=== PATIENT | female | born 1975 | race African-American/Black ===

== ENCOUNTER 2016-08-26 08:21 | Inpatient (IN) | payer OTHER ==
[2016-08-26 10:36] VITALS: BMI 23.8
--- NOTE | 2016-08-26 12:09 | HP ---
CIWA Score - CIWA Score Nausea/Vomitin Muscle Tremors: 3 Anxiety: 3 Agitation: 2 Paroxysmal Sweats: 1-Minimal Palms Moist Orientation: 0-Oriented Tacttile Disturbances: 1-Very Mild Itch/Numbness Auditory Disturbances: 1-Very Mild Visual Disturbances: 1-Very Mild Sensitivity Headache: 2-Mild CIWA-Ar Total Score: 17 Admission ROS BHS - HPI Chief Complaint: i need help help to stop drinking alcohol and cocaine Allergies/Adverse Reactions: Allergies Allergy/AdvReac Type Severity Reaction Status Date / Time acetaminophen Allergy Severe Difficulty Verified 08/26/16 10:35 [From Darvocet-N] Breathing ibuprofen Allergy Severe Difficulty Verified 08/26/16 10:35 Breathing latex Allergy Severe Swelling Verified 08/26/16 10:35 olanzapine [From Zyprexa] Allergy Severe Hives Verified 08/26/16 10:35 orange Allergy Severe Hives Verified 08/26/16 10:35 Penicillins Allergy Severe Swelling Verified 08/26/16 10:35 promethazine HCl Allergy Severe Swelling Verified 08/26/16 10:35 [From Phenergan] propoxyphene napsylate Allergy Severe Difficulty Verified 08/26/16 10:35 [From Darvocet-N] Breathing shrimp Allergy Severe Swelling Verified 08/26/16 10:35 venlafaxine HCl Allergy Severe Hives Verified 08/26/16 10:35 [From Effexor] History of Present Illness: this 41 years old female patient with alcohol and cocaine dependence,withdrawal symptom,never been in detox before seizure last 03/07 non compliance injury to right ankle seen at [facility] /.07/07 had right ankle immmobilization,requested cane walking depression Exam Limitations: No Limitations - Ebola screening Have you traveled outside of the country in the last 21 days: No Have you had contact with anyone from an Ebola affected area: No Have you been sick,other than usual withdrawal symptoms: No - Review of Systems Constitutional: Diaphoresis, Loss of Appetite, Malaise, Night Sweats, Changes in sleep, Weakness, Unintentional Wgt. Loss EENT: reports: Nose Congestion Respiratory: reports: No Symptoms reported Cardiac: reports: No Symptoms Reported GI: reports: Nausea, Vomiting, Abdominal cramping : reports: No Symptoms Reported Musculoskeletal: reports: Back Pain, Muscle Pain (old injury to right ankle wearing ankle immobilization) Integumentary: reports: Dryness Neuro: reports: Headache, Tremors Endocrine: reports: No Symptoms Reported Hematology: reports: No Symptoms Reported Psychiatric: reports: Judgement Intact, Mood/Affect Appropiate, Orientated x3, Depressed Patient History - Patient Medical History Hx Asthma: Yes (Pt is on MDI) Hx Chronic Obstructive Pulmonary Disease (COPD): No Hx Cancer: No Hx Cardiac Disorders: No Hx Congestive Heart Failure: No Hx Hypertension: No Hx Pacemaker: No HX Cerebrovascular Accident: No Hx Seizures: Yes (pt has a hx of and is not currently on meds. last seizure was 1 yr ago) Hx Dementia: No Hx Diabetes: No Hx Gastrointestinal Disorders: No Hx Liver Disease: No Hx Genitourinary Disorders: No Hx Sexually Transmitted Disorders: No Hx Renal Disease (ESRD): No Hx Thyroid Disease: No Hx Human Immunodeficiency Virus (HIV): No (last 08/06 negative) Hx Hepatitis C: No Hx Depression: Yes Hx Suicide Attempt: Yes (2013 overdose) Hx Bipolar Disorder: No Hx Schizophrenia: No Other Medical History: no suicidal,no homocodal - Patient Surgical History Past Surgical History: Yes Hx Orthopedic Surgery: Yes (Sx for fx mandible in 2005) Anesthesia Reaction: No - PPD History Previous Implant?: Yes Documented Results: Negative w/o proof Implanted On Prior R Admission?: No PPD to be Administered?: Yes - Reproductive History Patient is a Female of Child Bearing Age (11 -55 yrs old): Yes Last Menstrual Period: 07/31/16 Patient : No - Smoking Cessation Smoking history: Current every day smoker Have you smoked in the past 12 months: Yes Aproximately how many cigarettes per day: 30 Hx Chewing Tobacco Use: No Initiated information on smoking cessation: Yes 'Breaking Loose' booklet given: 08/26/16 - Substance & Tx. History Hx Alcohol Use: Yes Hx Substance Use: Yes Substance Use Type: Alcohol, Cocaine Hx Substance Use Treatment: No - Substances Abused Alcohol Route: Oral Frequency: Daily Amount used: 3 PINTS JOSUÉ Age of first use: 15 Date of Last Use: 08/25/16 Cocaine Route: Smoking Frequency: 1-3 times last 30 days Amount used: 2 HITS Age of first use: 41 Date of Last Use: 08/25/16 Family Disease History - Family Disease History Family Disease History: CA: Grandparent (alcohol, ca of throat), Other: Father (alcohol), Mother (alcohol,dsa) Admission Physical Exam [facility] - Vital Signs Vital Signs: Vital Signs - 24 hr 08/26/16 10:34 Temperature 96 F L Pulse Rate 74 Respiratory 20 Rate Blood Pressure 133/68 - Physical General Appearance: Yes: Moderate Distress, Tremorous, Irritable, Sweating, Anxious HEENTM: Yes: Normal ENT Inspection, BOZENA, Pharynx Normal Respiratory: Yes: Lungs Clear, Normal Breath Sounds, No Respiratory Distress Neck: Yes: Within Normal Limits, Supple, Trachea in good position Breast: Yes: Breast Exam Deferred Cardiology: Yes: Within Normal Limits, Regular Rhythm, Regular Rate, S1, S2 Abdominal: Yes: Within Normal Limits, Normal Bowel Sounds, Non Tender, Flat, Soft Genitourinary: Yes: Within Normal Limits Back: Yes: Muscle Spasm Musculoskeletal: Yes: full range of Motion, Back pain, Muscle Pain Extremities: Yes: Normal Range of Motion, Tremors Neurological: Yes: community life director II-XII NML intact, Fully Oriented, Alert, Motor Strength 5/5 Integumentary: Yes: Dry Lymphatic: Yes: Within Normal Limits - Diagnostic (1) Alcohol dependence with uncomplicated withdrawal Current Visit: Yes Status: Acute (2) Cocaine dependence Current Visit: Yes Status: Acute (3) Seizure Current Visit: Yes Status: Acute (4) Depression Current Visit: Yes Status: Acute (5) Nicotine dependence Current Visit: Yes Status: Acute (6) Asthma Current Visit: Yes Status: Acute (7) Mandible fracture Current Visit: Yes Status: Acute (8) Right ankle sprain Current Visit: Yes Status: Acute (9) Weight loss Current Visit: Yes Status: Acute Cleared for Admission [facility] - Detox or Rehab [facility] Level of Care: Medically Managed Detox Regimen/Protocol: Librium [facility] Breath Alcohol Content Breath Alcohol Content: 0 Urine Pregancy Test - Result Urine Test Results: Negative- NO Line Present Urine Drug Screen - Results Drug Screen Negative: No Urine Drug Screen Results: MELONIE-Cocaine
[2016-08-26] MEDS ORDERED: MAGNESIUM CITRATE 300 ML BOTTLE PO PRN (12:29)
[2016-08-26] MEDS ORDERED: guaiFENesin/D-METHORPHAN HB 10 ML UNIT-DOSE CUPS PO PRN (12:29)
[2016-08-26] MEDS ORDERED: chlordiazePOXIDE HCL 25 MG CAPSULE PO PRN (12:29)
[2016-08-26] MEDS ORDERED: NICOTINE POLACRILEX 2 MG GUM BUC PRN (12:29)
[2016-08-26] MEDS ORDERED: LOPERAMIDE HCL 2 MG CAPSULE PO PRN (12:29)
[2016-08-26] MEDS ORDERED: P-EPHED 60MG/TRIPROLIDI 2.5MG TABLET PO PRN (12:29)
[2016-08-26] MEDS ORDERED: MAGNESIUM HYDROX 2400MG/30ML ORAL SUSPENSION 30 ML CUP PO PRN (12:29)
[2016-08-26] MEDS ORDERED: MAG HYDROX/AL HYDROX/SIMETH 30 ML UNIT-DOSE CUP PO PRN (12:29)
[2016-08-26] MEDS ORDERED: diphenhydrAMINE HCL 50 MG CAPSULE PO PRN (12:29)
[2016-08-26] MEDS ORDERED: IBUPROFEN 400 MG TABLET (FP) PO PRN (12:29)
[2016-08-26] MEDS ORDERED: MENTHOL/PHENOL 1 EACH UD MM PRN (12:29)
[2016-08-26] MEDS ORDERED: ALBUTEROL SO4 6.7 GM HFA INHALER IH PRN (12:35)
[2016-08-26] MEDS ORDERED: PHENYTOIN NA EXTENDED 100 MG CAPSULE (FP) PO ONE (12:37)
[2016-08-26] MEDS ORDERED: TOPIRAMATE 25 MG TABLET (FP) PO ONE (12:38)
[2016-08-26] MEDS ORDERED: chlordiazePOXIDE HCL 25 MG CAPSULE PO ONE (12:48)
[2016-08-26] MEDS: PHENYTOIN NA EXTENDED 100 MG CAPSULE (FP) PO SCH ×2 (15:03→22:41)
[2016-08-26] MEDS: NICOTINE 21 MG/24 HOURS TOPICAL PATCH TD SCH (15:03)
[2016-08-26 16:21] LABS: URINE APPEARANCE CLEAR; URINE BILIRUBIN NEGATIVE (NEGATIVE); URINE BLOOD NEGATIVE (NEGATIVE); URINE COLOR YELLOW; URINE GLUCOSE (UA) NEGATIVE (NEGATIVE); URINE KETONE NEGATIVE (NEGATIVE); URINE NITRITE NEGATIVE (NEGATIVE); URINE PROTEIN NEGATIVE (NEGATIVE); URINE UROBILINOGEN NEGATIVE E.U./dl (0.2-1.0)
[2016-08-26 16:53] LABS: URINE LEUK ESTERASE TRACE (NEGATIVE)
[2016-08-26 17:12] LABS: URINE MUCUS RARE; URINE RBC 1 /hpf (0-3); URINE WBC 2 /hpf (3-5)
[2016-08-26] MEDS: chlordiazePOXIDE HCL 25 MG CAPSULE PO SCH ×2 (17:27→22:40)
[2016-08-26 20:00] LABS: HIV 1 & 2 AB NEGATIVE; HIV 1 AGp24 NEGATIVE
[2016-08-26] MEDS: THIAMINE HCL 100 MG TABLET (FP) PO SCH (22:40)
[2016-08-26] MEDS: CYCLOBENZAPRINE HCL 10 MG TABLET (FP) PO PRN (22:41)
[2016-08-27] MEDS: PHENYTOIN NA EXTENDED 100 MG CAPSULE (FP) PO SCH ×3 (06:34→23:11)
[2016-08-27] MEDS: chlordiazePOXIDE HCL 25 MG CAPSULE PO SCH ×4 (06:35→23:12)
--- NOTE | 2016-08-27 06:42 | CONSULT ---
[facility] Psychiatric Consult - Data Date of interview: 08/27/16 Admission source: [facility] Identifying data: This is 41 years old female with no psychiatric hospitalization history intoicated with: Alcohol, Cocaine and Nicotine Substance Abuse History: - Smoking Cessation. Smoking history: Current every day smoker. Have you smoked in the past 12 months: Yes. Aproximately how many cigarettes per day: 30. Hx Chewing Tobacco Use: No. Initiated information on smoking cessation: Yes. 'Breaking Loose' booklet given: 08/26/16. - Substance & Tx. History. Hx Alcohol Use: Yes. Hx Substance Use: Yes. Substance Use Type : Alcohol, Cocaine. Hx Substance Use Treatment: No. - Substances Abused. Alcohol. Route: Oral. Frequency: Daily. Amount used: 3 PINTS JOSUÉ. Age of first use: 15. Date of Last Use: 08/25/16. Cocaine. Route: Smoking. Frequency: 1-3 times last 30 days. Amount used: 2 HITS. Age of first use: 41. Date of Last Use: 08/25/16 Medical History: Asthma, Hisotyr of mandible fracture, Sweizure history, Weight loss history Psychiatric History: Patient reports history of depression and anxiety, reports taking prior to admission: Wellbutrin XL 150mg poqd. Seroquel 100mg po qhs Physical/Sexual Abuse/Trauma History: Denies Additional Comment: Wellbutrin XL 150mg poqd. Seroquel 100mg po qhs Mental Status Exam - Mental Status Exam Alert and Oriented to: Person Cognitive Function: Fair Patient Appearance: Unkempt Mood: Sad Affect: Flat Patient Behavior: Sedated Speech Pattern: Delayed Voice Loudness: Mildly Soft/Quiet Thought Process: Goal Oriented Thought Disorder: Being Controlled Hallucinations: Denies Suicidal Ideation: Denies Homicidal Ideation: Denies Insight/Judgement: Fair Sleep: Difficulty falling asleep Appetite: Weight loss Muscle strength/Tone: Mild Hypotonicity Gait/Station: Shuffling Additional Comments: Wellbutrin XL 150mg poqd. Seroquel 100mg po qhs Psychiatric Findings - Problem List ([place] 1, 2,3) (1) Alcohol dependence with uncomplicated withdrawal Current Visit: Yes Status: Acute (2) Cocaine dependence Current Visit: Yes Status: Acute (3) Nicotine dependence Current Visit: Yes Status: Acute (4) Weight loss Current Visit: Yes Status: Acute (5) Drug-induced mood disorder Current Visit: Yes Status: Acute - Initial Treatment Plan Initial Treatment Plan: Wellbutrin XL 150mg poqd. Seroquel 100mg po qhs
[2016-08-27 09:58] LABS: MCHC 32.3 g/dl (32.0-36.0); MEAN CELL VOLUME 83.8 fl (80-96); PLATELET COUNT 171 K/MM3 (134-434); RDW 14.5 % (11.6-15.6); WHITE BLOOD COUNT 8.5 K/mm3 (4.0-10.0)
[2016-08-27] MEDS: NICOTINE 21 MG/24 HOURS TOPICAL PATCH TD SCH (10:05)
[2016-08-27] MEDS: TOPIRAMATE 25 MG TABLET (FP) PO SCH (10:05)
[2016-08-27] MEDS: PRENATAL VITAMINS W/ FOLIC ACID TABLET (FP) PO SCH (10:06)
[2016-08-27 10:40] LABS: ALBUMIN 4.3 g/dl (3.4-5.0); ALK PHOS 81 U/L (45-117); ANION GAP 10 (8-16); BILIRUBIN,TOTAL 0.4 mg/dL (0.2-1.0); CALCIUM 9.1 mg/dL (8.5-10.1); CO2 24 mmol/L (21-32); GLUCOSE,RANDOM 65 mg/dL (74-106); SGOT/AST 12 U/L (15-37); SGPT/ALT 17 U/L (12-78); TOT PROT 7.7 g/dl (6.4-8.2)
--- NOTE | 2016-08-27 11:22 | PN ---
S CIWA - CIWA Score Nausea/Vomitin-Mild Nausea/No Vomiting Muscle Tremors: 4-Moderate,w/Arms Extend Anxiety: 3 Agitation: 4-Moderately Restless Paroxysmal Sweats: 3 Orientation: 0-Oriented Tacttile Disturbances: 0-None Auditory Disturbances: 0-None Visual Disturbances: 0-None Headache: 2-Mild CIWA-Ar Total Score: 17 BHS Progress Note (SOAP) Subjective: nausea sweats shakes interrupted sleep tired headache Objective: 08/27/16 11:21 Vital Signs Temperature 98.1 F 08/27/16 10:13 Pulse Rate 86 08/27/16 10:13 Respiratory Rate 18 08/27/16 10:13 Blood Pressure 99/60 08/27/16 10:13 O2 Sat by Pulse Oximetry (%) Laboratory Tests 08/26/16 08/26/16 08/26/16 11:25 12:30 15:00 WBC RBC Hgb Hct MCV MCHC RDW Plt Count MPV Sodium Potassium Chloride Carbon Dioxide Anion Gap BUN Creatinine Creat Clearance w eGFR Random Glucose Calcium Total Bilirubin AST ALT Alkaline Phosphatase Total Protein Albumin Urine Color Yellow Urine Appearance Clear Urine pH 5.0 Ur Specific [place] 1.020 Urine Protein Negative Urine Glucose (UA) Negative Urine Ketones Negative Urine Blood Negative Urine Nitrite Negative Urine Bilirubin Negative Urine Urobilinogen Negative Ur Leukocyte Esterase Trace H Urine RBC 1 Urine WBC 2 Ur Epithelial Cells Few Urine Mucus Rare Phenytoin < 2.5 L HIV 1&2 Antibody Screen Negative HIV P24 Antigen Negative 08/27/16 08/27/16 06:00 06:00 WBC 8.5 RBC 5.09 Hgb 13.7 Hct 42.6 MCV 83.8 MCHC 32.3 RDW 14.5 Plt Count 171 MPV 10.0 Sodium 140 Potassium 4.2 Chloride 106 Carbon Dioxide 24 Anion Gap 10 BUN 10 Creatinine 1.0 Creat Clearance w eGFR > 60 Random Glucose 65 L Calcium 9.1 Total Bilirubin 0.4 AST 12 L ALT 17 Alkaline Phosphatase 81 Total Protein 7.7 Albumin 4.3 Urine Color Urine Appearance Urine pH Ur Specific [place] Urine Protein Urine Glucose (UA) Urine Ketones Urine Blood Urine Nitrite Urine Bilirubin Urine Urobilinogen Ur Leukocyte Esterase Urine RBC Urine WBC Ur Epithelial Cells Urine Mucus Phenytoin HIV 1&2 Antibody Screen HIV P24 Antigen awake/alert lying in bed no acute distress Assessment: 06/07/17 11:22 withdrawal sx Plan: continue detox increase fluids motrin/tylenol prn tigan po prn
[2016-08-27] MEDS ORDERED: TRIMETHOBENZAMIDE HCL 300 MG CAPSULE PO PRN (11:23)
--- NOTE | 2016-08-27 11:42 | EKG ---
Test Reason : Blood Pressure : / mmHG Vent. Rate : 059 BPM Atrial Rate : 059 BPM P-R Int : 144 ms QRS Dur : 080 ms QT Int : 408 ms P-R-T Axes : 057 079 064 degrees QTc Int : 403 ms SINUS BRADYCARDIA OTHERWISE NORMAL ECG NO PREVIOUS ECGS AVAILABLE Confirmed by ANGIE PARMAR, CHRISTINA ([id number]) on 08/27/2016 11:41:51 AM Referred By: Confirmed By:CHRISTINA ADAMS MD
[2016-08-27] MEDS: THIAMINE HCL 100 MG TABLET (FP) PO SCH (23:12)
[2016-08-27] MEDS: QUEtiapine FUMARATE 100 MG TABLET (FP) PO SCH (23:12)
[2016-08-28] MEDS: PHENYTOIN NA EXTENDED 100 MG CAPSULE (FP) PO SCH ×3 (07:31→22:30)
[2016-08-28] MEDS: chlordiazePOXIDE HCL 25 MG CAPSULE PO SCH ×2 (07:32→11:12)
[2016-08-28] MEDS: PRENATAL VITAMINS W/ FOLIC ACID TABLET (FP) PO SCH (10:53)
[2016-08-28] MEDS: TOPIRAMATE 25 MG TABLET (FP) PO SCH (10:53)
[2016-08-28] MEDS: NICOTINE 21 MG/24 HOURS TOPICAL PATCH TD SCH (10:54)
[2016-08-28] MEDS: CYCLOBENZAPRINE HCL 10 MG TABLET (FP) PO PRN ×2 (10:56→22:32)
--- NOTE | 2016-08-28 11:24 | PN ---
[facility] CIWA - CIWA Score Nausea/Vomitin-No Nausea/No Vomiting Muscle Tremors: 4-Moderate,w/Arms Extend Anxiety: 3 Agitation: 4-Moderately Restless Paroxysmal Sweats: 3 Orientation: 0-Oriented Tacttile Disturbances: 0-None Auditory Disturbances: 0-None Visual Disturbances: 0-None Headache: 0-None Present CIWA-Ar Total Score: 14 BHS Progress Note (SOAP) Subjective: irritable agitation interrupted sleep right foot discomfort i need a new pablo bandage to wrap my sprain foot then wear my specialized foot wear. Objective: 08/28/16 11:21 Vital Signs Temperature 95.5 F L 08/28/16 09:53 Pulse Rate 81 08/28/16 09:53 Respiratory Rate 16 08/28/16 09:53 Blood Pressure 113/72 08/28/16 09:53 O2 Sat by Pulse Oximetry (%) Laboratory Tests 08/26/16 08/26/16 08/26/16 11:25 12:30 15:00 WBC RBC Hgb Hct MCV MCHC RDW Plt Count MPV Sodium Potassium Chloride Carbon Dioxide Anion Gap BUN Creatinine Creat Clearance w eGFR Random Glucose Calcium Total Bilirubin AST ALT Alkaline Phosphatase Total Protein Albumin Urine Color Yellow Urine Appearance Clear Urine pH 5.0 Ur Specific [place] 1.020 Urine Protein Negative Urine Glucose (UA) Negative Urine Ketones Negative Urine Blood Negative Urine Nitrite Negative Urine Bilirubin Negative Urine Urobilinogen Negative Ur Leukocyte Esterase Trace H Urine RBC 1 Urine WBC 2 Ur Epithelial Cells Few Urine Mucus Rare Phenytoin < 2.5 L RPR Titer HIV 1&2 Antibody Screen Negative HIV P24 Antigen Negative 08/27/16 08/27/16 08/27/16 06:00 06:00 06:00 WBC 8.5 RBC 5.09 Hgb 13.7 Hct 42.6 MCV 83.8 MCHC 32.3 RDW 14.5 Plt Count 171 MPV 10.0 Sodium 140 Potassium 4.2 Chloride 106 Carbon Dioxide 24 Anion Gap 10 BUN 10 Creatinine 1.0 Creat Clearance w eGFR > 60 Random Glucose 65 L Calcium 9.1 Total Bilirubin 0.4 AST 12 L ALT 17 Alkaline Phosphatase 81 Total Protein 7.7 Albumin 4.3 Urine Color Urine Appearance Urine pH Ur Specific [place] Urine Protein Urine Glucose (UA) Urine Ketones Urine Blood Urine Nitrite Urine Bilirubin Urine Urobilinogen Ur Leukocyte Esterase Urine RBC Urine WBC Ur Epithelial Cells Urine Mucus Phenytoin RPR Titer Nonreactive HIV 1&2 Antibody Screen HIV P24 Antigen awake/alert ambulating no acute distress Assessment: 08/28/16 11:22 withdrawal sx right foot assessed; no swelling, no skin breakdown. will order pablo bandage and have pt wear her boot. Plan: continue detox increase fluids
[2016-08-28] MEDS: chlordiazePOXIDE 5 MG CAPSULE PO SCH ×2 (17:11→22:32)
[2016-08-28] MEDS: QUEtiapine FUMARATE 100 MG TABLET (FP) PO SCH (22:30)
[2016-08-28] MEDS: THIAMINE HCL 100 MG TABLET (FP) PO SCH (22:32)
[2016-08-29] MEDS: chlordiazePOXIDE 5 MG CAPSULE PO SCH ×2 (05:44→11:01)
[2016-08-29] MEDS: PHENYTOIN NA EXTENDED 100 MG CAPSULE (FP) PO SCH ×3 (07:44→22:37)
[2016-08-29] MEDS: PRENATAL VITAMINS W/ FOLIC ACID TABLET (FP) PO SCH (11:01)
[2016-08-29] MEDS: TOPIRAMATE 25 MG TABLET (FP) PO SCH (11:01)
[2016-08-29] MEDS: NICOTINE 21 MG/24 HOURS TOPICAL PATCH TD SCH (11:01)
[2016-08-29] MEDS: hydrOXYzine PAMOATE 50 MG CAPSULE (FP) PO PRN ×2 (11:02→22:38)
[2016-08-29] MEDS: CYCLOBENZAPRINE HCL 10 MG TABLET (FP) PO PRN ×2 (11:02→22:37)
--- NOTE | 2016-08-29 11:03 | PN ---
BHS Progress Note (SOAP) Subjective: tired sweats sleepy Objective: 08/29/16 11:02 Vital Signs Temperature 97.7 F 08/29/16 10:19 Pulse Rate 87 08/29/16 10:19 Respiratory Rate 16 08/29/16 10:19 Blood Pressure 106/66 08/29/16 10:19 O2 Sat by Pulse Oximetry (%) awake/alert ambulating no acute distress Assessment: 08/29/16 11:03 withdrawal sx Plan: continue detox increase fluids d/c in am
[2016-08-29] MEDS: chlordiazePOXIDE HCL 10 MG CAPSULE PO SCH ×2 (17:39→22:37)
[2016-08-29] MEDS: QUEtiapine FUMARATE 100 MG TABLET (FP) PO SCH (22:38)
[2016-08-29] MEDS: THIAMINE HCL 100 MG TABLET (FP) PO SCH (22:47)
[2016-08-30] MEDS: PHENYTOIN NA EXTENDED 100 MG CAPSULE (FP) PO SCH (05:42)
[2016-08-30] MEDS: chlordiazePOXIDE HCL 10 MG CAPSULE PO SCH ×2 (05:42→12:35)
[2016-08-30 06:27] VITALS: BP 115/70; PULSE 78; TEMP 97.3
--- NOTE | 2016-08-30 09:10 | PN ---
S Progress Note (SOAP) Subjective: ALERT,NO COMPLAINT Objective: 08/30/16 09:09 Vital Signs Temperature 97.3 F L 08/30/16 06:26 Pulse Rate 78 08/30/16 06:26 Respiratory Rate 20 08/30/16 06:26 Blood Pressure 115/70 08/30/16 06:26 O2 Sat by Pulse Oximetry (%) Assessment: 08/30/16 09:09 DETOX COMPLETED,NO WITHDRAWAL SYMPTOM Plan: DISCHARGE TODAY,FOLLOW UP WITH AFTER CARE PROGRAM ARRANGEMENT
--- NOTE | 2016-08-30 09:13 | DS ---
[facility] Detox Discharge Summary Admission Date: 08/26/16 Discharge Date: 08/30/16 - History Present History: Alcohol Dependence, Cocaine Dependence Additional Comments: FOLLOW UP WITH AFTER [facility] PROGRAM ARRANGEMENT AND PMD FOR MEDICAL PROBLEM Pertinent Past History: SEIZURE ASTHMA DEPRESSION SPRAIN OF RIGHT ANKLE - Physical Exam Results Vital Signs: Vital Signs Temperature 97.3 F L 08/30/16 06:26 Pulse Rate 78 08/30/16 06:26 Respiratory Rate 20 08/30/16 06:26 Blood Pressure 115/70 08/30/16 06:26 O2 Sat by Pulse Oximetry (%) Pertinent Admission Physical Exam Findings: WITHDRAWAL SYMPTOM - Treatment Hospital Course: Detox Protocol Followed, Detoxed Safely, Responded well, Discharged Condition Good, Rehab Referral Accepted Patient has Accepted a Rehab Referral to: [facility] - Medication Discharge Medications: Ambulatory Orders Bupropion HCl [Bupropion HCl Sr] 150 mg PO DAILY 08/26/16 Gabapentin [Neurontin -] 100 mg PO Q8H 08/26/16 Quetiapine Fumarate [Seroquel -] 100 mg PO HS 08/26/16 Bupropion HCl [Wellbutrin Xl -] 150 mg PO DAILY #30 tab 08/27/16 Quetiapine Fumarate [Seroquel] 100 mg PO HS #30 tablet 08/27/16 Albuterol Sulfate Inhaler - [Ventolin HFA Inhaler -] 2 inh PO Q4H PRN #1 inh 01/06 Phenytoin Na Extended [Dilantin -] 100 mg PO TID #90 tab 08/30/16 Topiramate [Topamax -] 50 mg PO DAILY #30 tablet 08/30/16 - Diagnosis (1) Alcohol dependence with uncomplicated withdrawal Status: Acute (2) Cocaine dependence Status: Acute (3) Seizure Status: Acute (4) Depression Status: Acute (5) Nicotine dependence Status: Acute (6) Asthma Status: Acute (7) Mandible fracture Status: Acute (8) Right ankle sprain Status: Acute (9) Weight loss Status: Acute - AMA Did Patient Leave Against Medical Advice: No
[2016-08-30] MEDS: NICOTINE 21 MG/24 HOURS TOPICAL PATCH TD SCH (12:35)
[2016-08-30] MEDS: PRENATAL VITAMINS W/ FOLIC ACID TABLET (FP) PO SCH (12:35)
[2016-08-30] MEDS: TOPIRAMATE 25 MG TABLET (FP) PO SCH (12:35)
== END 2016-08-30 11:00 | disposition home or self-care (01) | DRG 774 ==
LOC: YASAS 08:21 → Y6N 11:46
PROVIDERS: ADMIT Internal Medicine; ATTEND Internal Medicine
PROC: HZ2ZZZZ Detoxification Services for Substance Abuse Treatment (ICD-10-PCS; principal; 2016-08-26)
DX: F10.230 Alcohol dependence with withdrawal, uncomplicated (principal); F14.20 Cocaine dependence, uncomplicated; F17.210 Nicotine dependence, cigarettes, uncomplicated; F19.24 Other psychoactive substance dependence with psychoactive substance-induced mood disorder; F32.9 Major depressive disorder, single episode, unspecified; G40.909 Epilepsy, unspecified, not intractable, without status epilepticus; J45.909 Unspecified asthma, uncomplicated; S93.401D Sprain of unspecified ligament of right ankle, subsequent encounter; X58.XXXD Exposure to other specified factors, subsequent encounter; Z87.81 Personal history of (healed) traumatic fracture; Z87.898 Personal history of other specified conditions; Z91.14 Patient's other noncompliance with medication regimen; Z91.5 Personal history of self-harm
CPT/HCPCS: 36415; 80053; 80185; 81003; 81015; 85027; 86593; 87389; 93005; 93010

== ENCOUNTER 2016-10-17 23:34 | Inpatient (IN) | payer OTHER ==
[2016-10-17 23:53] VITALS: BMI 25.0
--- NOTE | 2016-10-18 00:11 | HP ---
CIWA Score - CIWA Score Nausea/Vomitin Muscle Tremors: 3 Anxiety: 3 Agitation: 2 Paroxysmal Sweats: 2 Orientation: 0-Oriented Tacttile Disturbances: 2-Mild Itch/Numbness/Burn Auditory Disturbances: 2-Mild Harshness/Frighten Visual Disturbances: 2-Mild Sensitivity Headache: 2-Mild CIWA-Ar Total Score: 21 Admission ROS BHS - HPI Chief Complaint: i am here to stop drinking and using drug Allergies/Adverse Reactions: Allergies Allergy/AdvReac Type Severity Reaction Status Date / Time acetaminophen Allergy Severe Difficulty Verified 10/17/16 23:55 [From Darvocet-N] Breathing ibuprofen Allergy Severe Difficulty Verified 10/17/16 23:55 Breathing latex Allergy Severe Swelling Verified 10/17/16 23:55 olanzapine [From Zyprexa] Allergy Severe Hives Verified 10/17/16 23:55 orange Allergy Severe Hives Verified 10/17/16 23:55 Penicillins Allergy Severe Swelling Verified 10/17/16 23:55 promethazine HCl Allergy Severe Swelling Verified 10/17/16 23:55 [From Phenergan] propoxyphene napsylate Allergy Severe Difficulty Verified 10/17/16 23:55 [From Darvocet-N] Breathing shrimp Allergy Severe Swelling Verified 10/17/16 23:55 venlafaxine HCl Allergy Severe Hives Verified 10/17/16 23:55 [From Effexor] History of Present Illness: this 41 years old female with alcohol and cocaine dependence,seeking detox,last treatment asthma seizure nicotine dependence bipolar disorder schizophrenia multiple admissions to detox longest period of sobriety of 7 years Exam Limitations: No Limitations - Ebola screening Have you traveled outside of the country in the last 21 days: No (N) Have you had contact with anyone from an Ebola affected area: No Have you been sick,other than usual withdrawal symptoms: No Do you have a fever: No - Review of Systems Constitutional: Diaphoresis, Loss of Appetite, Night Sweats, Changes in sleep, Weakness EENT: reports: Tearing, Nose Congestion Respiratory: reports: No Symptoms reported, Other (asthma) Cardiac: reports: Palpitations GI: reports: Diarrhea, Nausea, Vomiting, Abdominal cramping : reports: No Symptoms Reported Musculoskeletal: reports: Back Pain, Muscle Pain, Other (sprain of right ankle in 08/06 ambulation with cane) Integumentary: reports: Dryness Neuro: reports: Headache, Tremors Endocrine: reports: No Symptoms Reported Hematology: reports: No Symptoms Reported Psychiatric: reports: Anxious (insomnia), Depressed Patient History - Patient Medical History Hx Asthma: Yes (Pt is on MDI) Hx Chronic Obstructive Pulmonary Disease (COPD): No Hx Cancer: No Hx Cardiac Disorders: No Hx Congestive Heart Failure: No Hx Hypertension: No Hx Pacemaker: No HX Cerebrovascular Accident: No Hx Seizures: Yes (pt has a hx of and is not currently on meds. last seizure was 1 yr ago) Hx Dementia: No Hx Diabetes: No Hx Gastrointestinal Disorders: No Hx Liver Disease: No Hx Genitourinary Disorders: No Hx Sexually Transmitted Disorders: No Hx Renal Disease (ESRD): No Hx Thyroid Disease: No Hx Human Immunodeficiency Virus (HIV): No (last 10/06 negative) Hx Hepatitis C: No Hx Depression: Yes Hx Suicide Attempt: Yes (2013 overdose) Hx Bipolar Disorder: No Hx Schizophrenia: No Other Medical History: insomnia,no suicidl,no homicidal - Patient Surgical History Past Surgical History: Yes Hx Orthopedic Surgery: Yes (Sx for fx mandible in 2005) Anesthesia Reaction: No - PPD History Previous Implant?: Yes Documented Results: Negative w/proof Implanted On Prior [facility] Admission?: Yes Date: 08/28/16 Results: 0 mm PPD to be Administered?: No - Reproductive History Patient is a Female of Child Bearing Age (11 -55 yrs old): Yes Last Menstrual Period: 10/12/16 Patient : No - Smoking Cessation Smoking history: Current every day smoker Have you smoked in the past 12 months: Yes Aproximately how many cigarettes per day: 10 Hx Chewing Tobacco Use: No Initiated information on smoking cessation: Yes 'Breaking Loose' booklet given: 10/18/16 - Substance & Tx. History Hx Alcohol Use: Yes Hx Substance Use: Yes Substance Use Type: Alcohol, Cocaine Hx Substance Use Treatment: Yes ([facility] 08/26/16 to 08/30/16) - Substances Abused Alcohol Route: Oral Frequency: Daily Amount used: beer- 1 six pack Age of first use: 19 Date of Last Use: 10/17/16 Cocaine Route: Inhalation Frequency: 1-3 times last 30 days Amount used: 50$ Age of first use: 20 Date of Last Use: 10/17/16 Family Disease History - Family Disease History Family Disease History: CA: Grandparent (alcohol, ca of throat), Other: Father (alcohol), Mother (alcohol,dsa) Admission Physical Exam [facility] - Vital Signs Vital Signs: Vital Signs - 24 hr 10/17/16 23:49 Temperature 98.0 F Pulse Rate 100 H Respiratory 18 Rate Blood Pressure 140/90 - Physical General Appearance: Yes: Moderate Distress, Tremorous, Irritable, Sweating, Anxious HEENTM: Yes: Normal ENT Inspection, BOZENA, Pharynx Normal Respiratory: Yes: Lungs Clear, Normal Breath Sounds, No Respiratory Distress Neck: Yes: Within Normal Limits Breast: Yes: Breast Exam Deferred Cardiology: Yes: Tachycardia Abdominal: Yes: Within Normal Limits, Normal Bowel Sounds, Non Tender, Flat, Soft Genitourinary: Yes: Within Normal Limits Back: Yes: Muscle Spasm Musculoskeletal: Yes: Back pain, Muscle Pain Extremities: Yes: Tremors, Swelling, Other (swelling of right ankle) Neurological: Yes: manager oncology II-XII NML intact, Alert, Motor Strength 5/5 Integumentary: Yes: Dry Lymphatic: Yes: Within Normal Limits - Diagnostic (1) Alcohol dependence with uncomplicated withdrawal Current Visit: No Status: Acute (2) Asthma Current Visit: No Status: Acute (3) Cocaine dependence Current Visit: No Status: Acute (4) Depression Current Visit: No Status: Acute (5) Mandible fracture Current Visit: No Status: Acute (6) Nicotine dependence Current Visit: No Status: Acute (7) Right ankle sprain Current Visit: No Status: Acute (8) Seizure Current Visit: No Status: Acute (9) Weight loss Current Visit: No Status: Acute (10) Use of cane as ambulatory aid Current Visit: Yes Status: Acute Cleared for Admission [facility] - Detox or Rehab [facility] Level of Care: Medically Managed Detox Regimen/Protocol: Librium [facility] Breath Alcohol Content Breath Alcohol Content: 0 Urine Pregancy Test - Result Urine Test Results: Negative- NO Line Present Urine Drug Screen - Results Drug Screen Negative: No Urine Drug Screen Results: MELONIE-Cocaine, BAR-Barbiturates
[2016-10-18] MEDS ORDERED: MENTHOL/PHENOL 1 EACH UD MM PRN (00:29)
[2016-10-18] MEDS ORDERED: chlordiazePOXIDE HCL 25 MG CAPSULE PO PRN (00:29)
[2016-10-18] MEDS ORDERED: chlordiazePOXIDE HCL 25 MG CAPSULE PO ONE (00:29)
[2016-10-18] MEDS ORDERED: P-EPHED 60MG/TRIPROLIDI 2.5MG TABLET PO PRN (00:29)
[2016-10-18] MEDS ORDERED: MAGNESIUM HYDROX 2400MG/30ML ORAL SUSPENSION 30 ML CUP PO PRN (00:29)
[2016-10-18] MEDS ORDERED: diphenhydrAMINE HCL 50 MG CAPSULE PO PRN (00:29)
[2016-10-18] MEDS ORDERED: MAGNESIUM CITRATE 300 ML BOTTLE PO PRN (00:29)
[2016-10-18] MEDS ORDERED: ACETAMINOPHEN 325 MG TABLET (FP) PO PRN (00:29)
[2016-10-18] MEDS ORDERED: IBUPROFEN 400 MG TABLET (FP) PO PRN (00:29)
[2016-10-18] MEDS ORDERED: hydrOXYzine PAMOATE 50 MG CAPSULE (FP) PO PRN (00:29)
[2016-10-18] MEDS ORDERED: guaiFENesin/D-METHORPHAN HB 10 ML UNIT-DOSE CUPS PO PRN (00:29)
[2016-10-18] MEDS ORDERED: LOPERAMIDE HCL 2 MG CAPSULE PO PRN (00:29)
[2016-10-18] MEDS ORDERED: ALBUTEROL SO4 6.7 GM HFA INHALER IH PRN (00:34)
[2016-10-18] MEDS: PHENYTOIN NA EXTENDED 100 MG CAPSULE (FP) PO SCH ×3 (05:50→23:00)
[2016-10-18] MEDS: chlordiazePOXIDE HCL 25 MG CAPSULE PO SCH ×4 (06:05→23:03)
[2016-10-18 10:42] LABS: MCH 27.4 pg (25.7-33.7); MCHC 32.6 g/dl (32.0-36.0); MEAN PLT VOLUME 9.6 fl (7.5-11.1); PLATELET COUNT 145 K/MM3 (134-434); RDW 14.1 % (11.6-15.6); WHITE BLOOD COUNT 7.5 K/mm3 (4.0-10.0)
[2016-10-18 10:51] LABS: ALBUMIN 3.5 g/dl (3.4-5.0); ALK PHOS 73 U/L (45-117); ANION GAP 7 (8-16); BILIRUBIN,TOTAL 0.7 mg/dL (0.2-1.0); CALCIUM 8.5 mg/dL (8.5-10.1); CO2 27 mmol/L (21-32); CREATININE 0.9 mg/dL (0.55-1.02); GLUCOSE,RANDOM 93 mg/dL (74-106); SGOT/AST 11 U/L (15-37); SGPT/ALT 12 U/L (12-78); TOT PROT 6.4 g/dl (6.4-8.2)
[2016-10-18] MEDS: PRENATAL VITAMINS W/ FOLIC ACID TABLET (FP) PO SCH (11:14)
[2016-10-18] MEDS: NICOTINE 21 MG/24 HOURS TOPICAL PATCH TD SCH (11:14)
--- NOTE | 2016-10-18 12:23 | PN ---
[facility] Progress Note Note: Pt. was admitted earlier this AM, C/O withdrawal sx. Vital Signs - 8 hr 10/18/16 10/18/16 06:00 09:56 Temperature 97.3 F L 97.7 F Pulse Rate 68 73 Respiratory 18 18 Rate Blood Pressure 93/56 96/49 Laboratory Last Values WBC 7.5 K/mm3 (4.0-10.0) 10/18/16 08:00 RBC 4.84 M/mm3 (3.60-5.2) 10/18/16 08:00 Hgb 13.3 GM/dL (10.7-15.3) 10/18/16 08:00 Hct 40.7 % (32.4-45.2) 10/18/16 08:00 MCV 84.0 fl (80-96) 10/18/16 08:00 MCH 27.4 pg (25.7-33.7) 10/18/16 08:00 MCHC 32.6 g/dl (32.0-36.0) 10/18/16 08:00 RDW 14.1 % (11.6-15.6) 10/18/16 08:00 Plt Count 145 K/MM3 (134-434) 10/18/16 08:00 MPV 9.6 fl (7.5-11.1) 10/18/16 08:00 Sodium 141 mmol/L (136-145) 10/18/16 08:00 Potassium 3.8 mmol/L (3.5-5.1) 10/18/16 08:00 Chloride 107 mmol/L (98-107) 10/18/16 08:00 Carbon Dioxide 27 mmol/L (21-32) 10/18/16 08:00 Anion Gap 7 (8-16) L 10/18/16 08:00 BUN 10 mg/dL (7-18) 10/18/16 08:00 Creatinine 0.9 mg/dL (0.55-1.02) 10/18/16 08:00 Creat Clearance w eGFR > 60 (>60) 10/18/16 08:00 Random Glucose 93 mg/dL (74-106) D 10/18/16 08:00 Calcium 8.5 mg/dL (8.5-10.1) 10/18/16 08:00 Total Bilirubin 0.7 mg/dL (0.2-1.0) D 10/18/16 08:00 AST 11 U/L (15-37) L 10/18/16 08:00 ALT 12 U/L (12-78) D 10/18/16 08:00 Alkaline Phosphatase 73 U/L (45-117) 10/18/16 08:00 Total Protein 6.4 g/dl (6.4-8.2) 10/18/16 08:00 Albumin 3.5 g/dl (3.4-5.0) 10/18/16 08:00 Phenytoin < 2.5 ug/ml (10.0-20.0) L 10/18/16 08:00 labs noted Continue detox
--- NOTE | 2016-10-18 14:05 | CONSULT ---
[facility] Psychiatric Consult - Data Date of interview: 10/18/16 Admission source: [facility] Identifying data: THis is a 41 year old Black female mother of 4 children, unemployed and residing with her family in [place]. Substance Abuse History: Patient reports started drinking alcohol at age of 19, reports drinks beer 1- six pack daily, cocaine strated at age of 20 , reports she uses 3-4 times a month $50. She smokes cigarettes 1/2 PPD. Psychiatric History: Patient reports history of depression and anxiety, no history of psychiatric hospitalizations, sees the psychiatrist at [facility] reports she is on Vistaril (?), Seroquel 100 mg po hs. Physical/Sexual Abuse/Trauma History: Patient denies history of sexual, physical and verbal abuse. Mental Status Exam - Mental Status Exam Alert and Oriented to: Time, Place, Person Cognitive Function: Grossly Intact Patient Appearance: Well Groomed Mood: Sad Affect: Mood Congruent, Blunted Patient Behavior: Sedated, Fatigued Speech Pattern: Clear Voice Loudness: Mildly Soft/Quiet Thought Process: Goal Oriented Thought Disorder: Not Present Hallucinations: Denies Suicidal Ideation: Denies Homicidal Ideation: Denies Insight/Judgement: Fair Sleep: Fair Muscle strength/Tone: Normal Gait/Station: Normal Psychiatric Findings - Problem List ([place] 1, 2,3) (1) Alcohol abuse with alcohol-induced mood disorder Current Visit: Yes Status: Acute - Initial Treatment Plan Initial Treatment Plan: will add Seroquel 50 mg po hs, continue Vistaril PRN, continue detox. protocol.
[2016-10-18] MEDS: QUEtiapine FUMARATE 50 MG TABLET PO SCH (23:00)
[2016-10-18] MEDS: THIAMINE HCL 100 MG TABLET (FP) PO SCH (23:01)
[2016-10-19] MEDS: PHENYTOIN NA EXTENDED 100 MG CAPSULE (FP) PO SCH ×3 (05:46→22:16)
[2016-10-19] MEDS: chlordiazePOXIDE HCL 25 MG CAPSULE PO SCH ×4 (05:46→22:16)
[2016-10-19] MEDS ORDERED: PHENYTOIN NA EXTENDED 100 MG CAPSULE (FP) PO ONE (07:48)
--- NOTE | 2016-10-19 07:51 | PN ---
S Progress Note Note: dilantin level less than 2.5 mgs to give dilantin 300 mgs po now ,continue dilatin 100 mgs po tid repeat dilantine level in am
[2016-10-19 10:31] LABS: URINE APPEARANCE CLEAR; URINE BILIRUBIN NEGATIVE (NEGATIVE); URINE BLOOD NEGATIVE (NEGATIVE); URINE COLOR LTYELLOW; URINE GLUCOSE (UA) NEGATIVE (NEGATIVE); URINE KETONE NEGATIVE (NEGATIVE); URINE LEUK ESTERASE TRACE (NEGATIVE); URINE NITRITE NEGATIVE (NEGATIVE); URINE PROTEIN NEGATIVE (NEGATIVE); URINE UROBILINOGEN NEGATIVE mg/dL (0.2-1.0)
[2016-10-19 10:33] LABS: URINE MUCUS RARE; URINE RBC <1 /hpf (0-3); URINE WBC 5 /hpf (3-5)
[2016-10-19] MEDS: PRENATAL VITAMINS W/ FOLIC ACID TABLET (FP) PO SCH (10:39)
[2016-10-19] MEDS: NICOTINE 21 MG/24 HOURS TOPICAL PATCH TD SCH ×2 (10:47→12:24)
--- NOTE | 2016-10-19 11:14 | PN ---
[facility] CIWA - CIWA Score Nausea/Vomitin-No Nausea/No Vomiting Muscle Tremors: 3 Anxiety: 4-Mod. Anxious/Guarded Agitation: 3 Paroxysmal Sweats: 3 Orientation: 0-Oriented Tacttile Disturbances: 0-None Auditory Disturbances: 0-None Visual Disturbances: 0-None Headache: 0-None Present CIWA-Ar Total Score: 13 BHS Progress Note (SOAP) Subjective: Anxiety,tremors,sweating,interrupted sleep,restless Objective: 10/19/16 11:12 Vital Signs - 8 hr 10/19/16 10/19/16 03:30 06:00 Temperature 97.0 F L Pulse Rate 87 Respiratory 18 18 Rate Blood Pressure 100/69 Laboratory Tests 10/18/16 10/18/16 10/18/16 08:00 08:00 08:00 WBC 7.5 RBC 4.84 Hgb 13.3 Hct 40.7 MCV 84.0 MCH 27.4 MCHC 32.6 RDW 14.1 Plt Count 145 MPV 9.6 Sodium 141 Potassium 3.8 Chloride 107 Carbon Dioxide 27 Anion Gap 7 L BUN 10 Creatinine 0.9 Creat Clearance w eGFR > 60 Random Glucose 93 D Calcium 8.5 Total Bilirubin 0.7 D AST 11 L ALT 12 D Alkaline Phosphatase 73 Total Protein 6.4 Albumin 3.5 Urine Color Urine Appearance Urine pH Urine Protein Urine Glucose (UA) Urine Ketones Urine Blood Urine Nitrite Urine Bilirubin Urine Urobilinogen Ur Leukocyte Esterase Urine RBC Urine WBC Ur Epithelial Cells Urine Mucus Phenytoin RPR Titer Nonreactive 10/18/16 10/19/16 08:00 08:30 WBC RBC Hgb Hct MCV MCH MCHC RDW Plt Count MPV Sodium Potassium Chloride Carbon Dioxide Anion Gap BUN Creatinine Creat Clearance w eGFR Random Glucose Calcium Total Bilirubin AST ALT Alkaline Phosphatase Total Protein Albumin Urine Color Ltyellow Urine Appearance Clear Urine pH 6.0 Urine Protein Negative Urine Glucose (UA) Negative Urine Ketones Negative Urine Blood Negative Urine Nitrite Negative Urine Bilirubin Negative Urine Urobilinogen Negative Ur Leukocyte Esterase Trace Urine RBC <1 Urine WBC 5 Ur Epithelial Cells Rare Urine Mucus Rare Phenytoin < 2.5 L RPR Titer dilantin level <2.5, loading dose given Assessment: 10/19/16 11:13 Withdrawal sx. Plan: Continue detox
[2016-10-19] MEDS: MAG HYDROX/AL HYDROX/SIMETH 30 ML UNIT-DOSE CUP PO PRN (16:39)
[2016-10-19] MEDS: QUEtiapine FUMARATE 50 MG TABLET PO SCH (22:17)
[2016-10-19] MEDS: THIAMINE HCL 100 MG TABLET (FP) PO SCH (22:17)
[2016-10-20] MEDS: PHENYTOIN NA EXTENDED 100 MG CAPSULE (FP) PO SCH ×3 (06:07→22:42)
[2016-10-20] MEDS: chlordiazePOXIDE 5 MG CAPSULE PO SCH ×4 (06:09→22:42)
[2016-10-20] MEDS: MAG HYDROX/AL HYDROX/SIMETH 30 ML UNIT-DOSE CUP PO PRN (06:11)
--- NOTE | 2016-10-20 09:15 | PN ---
Psychiatric Progress Note Vital Signs: Vital Signs Period Temp Pulse Resp BP Sys/Morin Pulse Ox Last 24 Hr 97.3 F-98.4 F 68-122 18-20 108-129/56-78 Date of Session: 10/20/16 Chief Complaint:: My medications HPI: Patient reports taking prior to admission: Topamax 50mg poqd. Seroquel 100mg po qjhs. Wellbutrin XL 150mg poqd. Vistaril 50mg po prn q4 for agitations and anxiety Current Medications: Active Medications Generic Name Dose Route Start Last Admin Trade Name Freq PRN Reason Stop Dose Admin Al Hydroxide/Mg Hydroxide 30 ml 10/18/16 00:29 10/20/16 06:11 Mylanta Oral Suspension - PO 30 ml Q6H PRN Administration DYSPEPSIA Albuterol Sulfate 2 puff 10/18/16 00:34 Ventolin Hfa Inhaler - IH Q4H PRN ASTHMA Bupropion HCl 150 mg 10/20/16 10:00 Wellbutrin Xl - PO DAILY SCOTT Chlordiazepoxide HCl 10 mg 10/21/16 05:00 Librium - PO 10/21/16 23:01 [id number] SCOTT Chlordiazepoxide HCl 25 mg 10/18/16 00:29 10/19/16 19:55 Librium - PO 10/21/16 00:28 25 mg Q4H PRN Administration WITHDRAWAL(CONT SUBST) Chlordiazepoxide HCl 15 mg 10/20/16 05:00 10/20/16 06:09 Librium - PO 10/20/16 23:01 Not Given [id number] SCOTT Diphenhydramine HCl 50 mg 10/18/16 00:29 10/18/16 00:55 Benadryl - PO 50 mg HSMR1 PRN Administration INSOMNIA Eucalyptus/Menthol/Phenol/Sorbitol 1 each 10/18/16 00:29 Cepastat Lozenge - MM Q4H PRN SORE THROAT Guaifenesin 10 ml 10/18/16 00:29 Robitussin Dm - PO Q6H PRN COUGH Hydroxyzine Pamoate 50 mg 10/18/16 00:29 10/19/16 22:17 Vistaril - PO 50 mg Q4H PRN Administration AGITATION Loperamide HCl 4 mg 10/18/16 00:29 Imodium - PO Q6H PRN DIARRHEA Magnesium Citrate 300 ml 10/18/16 00:29 Citroma - PO Q48H PRN CONSTIPATION Magnesium Hydroxide 30 ml 10/18/16 00:29 Milk Of Magnesia - PO DAILY PRN CONSTIPATION Nicotine 21 mg 10/18/16 10:00 10/19/16 12:24 Nicoderm Patch - TD 21 mg DAILY SCOTT Administration Phenytoin Sodium 100 mg 10/18/16 06:00 10/20/16 06:07 Dilantin - PO 100 mg TID SCOTT Administration Multivit/Folic Acid/Iron 1 tab 10/18/16 10:00 10/19/16 10:39 Vitamins (Sjr) - PO 1 tab DAILY SCOTT Administration Pseudoephedrine/Triprolidine 1 combo 10/18/16 00:29 Actifed - PO TID PRN NASAL CONGESTION Quetiapine Fumarate 100 mg 10/20/16 22:00 Seroquel - PO HS SCOTT Thiamine HCl 100 mg 10/18/16 22:00 10/19/16 22:17 Vitamin B1 - PO 100 mg HS SCOTT Administration Topiramate 50 mg 10/20/16 10:00 Topamax - PO DAILY SCOTT Medication(s) Change(s): Topamax 50mg poqd. Seroquel 100mg po qjhs. Wellbutrin XL 150mg poqd. Vistaril 50mg po prn q4 for agitations and anxiety Mental Status Exam - Mental Status Exam Alert and Oriented to: Person Cognitive Function: Fair Patient Appearance: Unkempt Mood: Sad Affect: Mood Congruent Patient Behavior: Cooperative Speech Pattern: Delayed Voice Loudness: Normal Thought Process: Goal Oriented Thought Disorder: Being Controlled Hallucinations: Denies Suicidal Ideation: Denies Homicidal Ideation: Denies Insight/Judgement: Fair Sleep: Difficulty falling asleep Appetite: Weight loss Muscle strength/Tone: Mild Hypotonicity Gait/Station: Other Additional Comments: Topamax 50mg poqd. Seroquel 100mg po qjhs. Wellbutrin XL 150mg poqd. Vistaril 50mg po prn q4 for agitations and anxiety Psychiatric Treatment Plan - Problem List (1) Alcohol abuse with alcohol-induced mood disorder Current Visit: Yes (2) Use of cane as ambulatory aid Current Visit: Yes (3) Alcohol dependence with uncomplicated withdrawal Current Visit: No (4) Cocaine dependence Current Visit: No (5) Drug-induced mood disorder Current Visit: No (6) Nicotine dependence Current Visit: No Initial treatment plan: Topamax 50mg poqd. Seroquel 100mg po qjhs. Wellbutrin XL 150mg poqd. Vistaril 50mg po prn q4 for agitations and anxiety
[2016-10-20] MEDS ORDERED: LIDOCAINE 5% TOPICAL PATCH TP ONE (09:44)
--- NOTE | 2016-10-20 09:57 | PN ---
[facility] CIWA - CIWA Score Nausea/Vomitin-No Nausea/No Vomiting Muscle Tremors: 3 Anxiety: 2 Agitation: 3 Paroxysmal Sweats: 2 Orientation: 0-Oriented Tacttile Disturbances: 0-None Auditory Disturbances: 0-None Visual Disturbances: 0-None Headache: 0-None Present CIWA-Ar Total Score: 10 S Progress Note (SOAP) Subjective: right ankle discomfort anxious sweats Objective: 10/20/16 09:47 Vital Signs Temperature 97.2 F L 10/20/16 10:00 Pulse Rate 78 10/20/16 10:00 Respiratory Rate 18 10/20/16 10:00 Blood Pressure 108/59 10/20/16 10:00 O2 Sat by Pulse Oximetry (%) awake/alert ambulating no acute distress Assessment: 10/20/16 09:49 withdrawal sx Plan: continue detox increase fluids d/c in am
--- NOTE | 2016-10-20 09:59 | EKG ---
Test Reason : Blood Pressure : / mmHG Vent. Rate : 082 BPM Atrial Rate : 082 BPM P-R Int : 152 ms QRS Dur : 084 ms QT Int : 350 ms P-R-T Axes : 070 074 046 degrees QTc Int : 408 ms NORMAL SINUS RHYTHM NORMAL ECG WHEN COMPARED WITH ECG OF 26-AUG-2016 13:52, NO SIGNIFICANT CHANGE WAS FOUND Confirmed by ISMAEL HUYNH MD ([id number]) on 10/20/2016 9:58:54 AM Referred By: Confirmed By:ISMAEL HUYNH MD
[2016-10-20] MEDS ORDERED: TOPIRAMATE 25 MG TABLET (FP) PO SCH (10:00)
[2016-10-20] MEDS: NICOTINE 21 MG/24 HOURS TOPICAL PATCH TD SCH (10:39)
[2016-10-20] MEDS: PRENATAL VITAMINS W/ FOLIC ACID TABLET (FP) PO SCH (10:39)
[2016-10-20] MEDS ORDERED: FLUCONAZOLE 50 MG TABLET PO ONE (15:45)
[2016-10-20] MEDS ORDERED: LIDOCAINE PATCH REMOVAL MC SCH (22:00)
[2016-10-20] MEDS ORDERED: QUEtiapine FUMARATE 100 MG TABLET (FP) PO SCH (22:00)
[2016-10-20] MEDS: THIAMINE HCL 100 MG TABLET (FP) PO SCH (22:41)
[2016-10-21] MEDS ORDERED: chlordiazePOXIDE HCL 10 MG CAPSULE PO SCH (05:00)
[2016-10-21] MEDS: PHENYTOIN NA EXTENDED 100 MG CAPSULE (FP) PO SCH (06:00)
[2016-10-21 06:15] VITALS: BP 90/50; PULSE 74; TEMP 98.3
--- NOTE | 2016-10-21 08:49 | DS ---
[facility] Detox Discharge Summary Admission Date: 10/17/16 Discharge Date: 10/21/16 - History Present History: Alcohol Dependence, Cocaine Dependence - Physical Exam Results Vital Signs: Vital Signs Temperature 98.3 F 10/21/16 06:00 Pulse Rate 74 10/21/16 06:00 Respiratory Rate 18 10/21/16 06:00 Blood Pressure 90/50 10/21/16 06:00 O2 Sat by Pulse Oximetry (%) - Treatment Hospital Course: Detox Protocol Followed, Detoxed Safely, Responded well, Discharged Condition Good, Rehab Referral Accepted - Medication Discharge Medications: Ambulatory Orders Bupropion HCl [Bupropion HCl Sr] 150 mg PO DAILY 08/26/16 Gabapentin [Neurontin -] 100 mg PO Q8H 08/26/16 Quetiapine Fumarate [Seroquel -] 100 mg PO HS 08/26/16 Bupropion HCl [Wellbutrin Xl -] 150 mg PO DAILY #30 tab 08/27/16 Quetiapine Fumarate [Seroquel] 100 mg PO HS #30 tablet 08/27/16 Albuterol Sulfate Inhaler - [Ventolin HFA Inhaler -] 2 inh PO Q4H PRN #1 inh 01/06 Phenytoin Na Extended [Dilantin -] 100 mg PO TID #90 tab 08/30/16 Topiramate [Topamax -] 50 mg PO DAILY #30 tablet 08/30/16 Quetiapine Fumarate [Seroquel -] 50 mg PO HS #30 tablet 10/18/16 Bupropion HCl [Wellbutrin Xl -] 150 mg PO DAILY #30 tab 10/20/16 Quetiapine Fumarate [Seroquel] 100 mg PO HS #30 tablet 10/20/16 Topiramate [Topamax -] 50 mg PO DAILY #30 tablet 10/20/16 - Diagnosis (1) Alcohol abuse with alcohol-induced mood disorder Current Visit: Yes Status: Acute (2) Use of cane as ambulatory aid Current Visit: Yes Status: Acute (3) Alcohol dependence with uncomplicated withdrawal Current Visit: Yes Status: Chronic (4) Asthma Current Visit: Yes Status: Chronic Qualifiers: Asthma severity: mild intermittent Asthma complication type: uncomplicated Qualified Code(s): J45.20 - Mild intermittent asthma, uncomplicated (5) Cocaine dependence Current Visit: Yes Status: Chronic Qualifiers: Substance use status: uncomplicated Qualified Code(s): F14.20 - Cocaine dependence, uncomplicated (6) Depression Current Visit: No Status: Acute (7) Drug-induced mood disorder Current Visit: No Status: Acute (8) Mandible fracture Current Visit: No Status: Resolved (9) Nicotine dependence Current Visit: Yes Status: Chronic Qualifiers: Nicotine product type: cigarettes Substance use status: uncomplicated Qualified Code(s): F17.210 - Nicotine dependence, cigarettes, uncomplicated (10) Right ankle sprain Current Visit: No Status: Acute (11) Seizure Current Visit: No Status: Acute (12) Weight loss Current Visit: No Status: Acute - AMA Did Patient Leave Against Medical Advice: No
[2016-10-21] MEDS: PRENATAL VITAMINS W/ FOLIC ACID TABLET (FP) PO SCH (09:11)
== END 2016-10-21 08:09 | disposition home or self-care (01) | DRG 774 ==
LOC: YASAS 23:34 → Y6N 23:54
PROVIDERS: ADMIT Internal Medicine; ATTEND Surgery
PROC: HZ2ZZZZ Detoxification Services for Substance Abuse Treatment (ICD-10-PCS; principal; 2016-10-21)
DX: F10.230 Alcohol dependence with withdrawal, uncomplicated (principal); F14.20 Cocaine dependence, uncomplicated; F17.210 Nicotine dependence, cigarettes, uncomplicated; F10.24 Alcohol dependence with alcohol-induced mood disorder; G47.00 Insomnia, unspecified; J45.20 Mild intermittent asthma, uncomplicated; Z86.69 Personal history of other diseases of the nervous system and sense organs; R26.89 Other abnormalities of gait and mobility; Z99.89 Dependence on other enabling machines and devices
CPT/HCPCS: 36415; 80053; 80185; 81003; 81015; 85027; 86593; 93005; 93010

== ENCOUNTER 2022-03-05 16:48 | Inpatient (IN) | payer OTHER ==
[2022-03-05 19:09] VITALS: RESP 18; BMI 28.1
[2022-03-05] MEDS ORDERED: MAGNESIUM HYDROX 2400MG/30ML ORAL SUSPENSION 30 ML CUP PO PRN (20:28)
[2022-03-05] MEDS ORDERED: hydrOXYzine PAMOATE 25 MG CAPSULE (FP) PO PRN (20:28)
[2022-03-05] MEDS ORDERED: POLYETHYLENE GLYCOL (HEALTHYLAX) 3350 17 GM PACKET PO PRN (20:28)
[2022-03-05] MEDS ORDERED: ONDANSETRON *ODT* 4 MG TABLET SL PRN (20:28)
[2022-03-05] MEDS ORDERED: MAG HYDROX/AL HYDROX/SIMETH 30 ML UNIT-DOSE CUP PO PRN (20:28)
[2022-03-05] MEDS ORDERED: METHOCARBAMOL 500 MG TABLET PO PRN (20:28)
[2022-03-05] MEDS ORDERED: LOPERAMIDE HCL 2 MG CAPSULE PO PRN (20:28)
[2022-03-05] MEDS ORDERED: NICOTINE POLACRILEX 2 MG GUM BUC PRN (20:28)
[2022-03-05] MEDS ORDERED: DICYCLOMINE HCL 10 MG CAPSULE PO PRN (20:28)
[2022-03-05] MEDS ORDERED: BENZOCAINE/MENTHOL (CHLORASEPTIC ) LOZENGE MM PRN (20:28)
[2022-03-05] MEDS ORDERED: NALOXONE HCL (KLOXXADO) 8 MG SPRAY NS PRN (20:28)
[2022-03-05] MEDS ORDERED: ALBUTEROL SO4 HFA INHALER IH PRN (20:34)
[2022-03-05] MEDS ORDERED: THIAMINE HCL 100 MG TABLET (FP) PO SCH (22:00)
[2022-03-05] MEDS ORDERED: MELATONIN 5 MG TABLETS PO SCH (22:00)
[2022-03-06 06:18] VITALS: BP 112/67; PULSE 60; TEMP 97.3
[2022-03-06] MEDS ORDERED: NICOTINE 21 MG/24 HOURS TOPICAL PATCH TD SCH (10:00)
[2022-03-06] MEDS ORDERED: PRENATAL VITAMINS W/ FOLIC ACID TABLET (FP) PO SCH (10:00)
[2022-03-06] MEDS ORDERED: TRIAMCINOLONE ACET 0.1% OINT 15 GM TUBE TP SCH (10:00)
[2022-03-06 10:24] LABS: HEMATOCRIT 41.9 % (32.4-45.2); HEMOGLOBIN 13.5 GM/dL (10.7-15.3); MCHC 32.2 g/dl (32.0-36.0); MEAN CELL VOLUME 83.6 fl (80-96); MEAN PLT VOLUME 9.5 fl (7.5-11.1); PLATELET COUNT 163 10^3/uL (134-434); RBC 5.02 M/mm3 (3.60-5.2); RDW 14.7 % (11.6-15.6); WHITE BLOOD COUNT 5.7 K/mm3 (4.0-10.0)
[2022-03-06 10:41] LABS: CALCIUM 9.2 mg/dL (8.5-10.1)
[2022-03-06 10:42] LABS: ALBUMIN 3.8 g/dl (3.4-5.0); BLOOD UREA NITROGEN 20.9 mg/dL (7-18)
[2022-03-06 10:45] LABS: CREATININE 0.9 mg/dL (0.55-1.3)
[2022-03-06 10:47] LABS: BILIRUBIN,TOTAL 0.4 mg/dL (0.2-1)
== END 2022-03-06 09:22 | disposition home or self-care (01) | DRG 774 ==
LOC: YASAS 16:48 → Y6N 22:16
PROVIDERS: ADMIT Surgery; ATTEND Surgery
PROC: HZ2ZZZZ Detoxification Services for Substance Abuse Treatment (ICD-10-PCS; principal; 2022-03-05)
DX: F10.230 Alcohol dependence with withdrawal, uncomplicated (principal); F14.20 Cocaine dependence, uncomplicated; F17.210 Nicotine dependence, cigarettes, uncomplicated; F19.24 Other psychoactive substance dependence with psychoactive substance-induced mood disorder; J45.20 Mild intermittent asthma, uncomplicated; M54.9 Dorsalgia, unspecified; G89.29 Other chronic pain; G40.909 Epilepsy, unspecified, not intractable, without status epilepticus; Z91.14 Patient's other noncompliance with medication regimen; Z86.69 Personal history of other diseases of the nervous system and sense organs
CPT/HCPCS: 36415; 80053; 80177; 85027; 86780; 93005; 93010; C9803-CS; U0003; U0005